=== PATIENT | female | born 1945 | race Caucasian/White ===

== ENCOUNTER 2017-10-04 17:11 | Emergency (ER) | payer MEDICARE, BC ==
[~2017-10-04] VITALS: Ht 165.1 cm; Wt 84.4 kg
[~2017-10-04 17:11] MED LIST: ALBU90I; ALBU90I INH; ALBU90OI INH; ALBU90OI6; ALBU90OI6 INH; ASPI81EC; ASPI81EC PO; Azithromycin500 MG PO; B-121000 MCG/1; BUME2 PO; BUSP15 PO; CYAN1000I IM; D3 + K2 Dots 11 EACH; DIGO.125 PO; DILT180; DILT180 PO; DILT240 PO; ESOM20; ESTR2; ESTR2 PO; Estradiol0.5 MG PO; FLUNOI IH; FURO40; FURO40 PO; GABA300T24; HYDACE5 PO; LISI5 PO; METO50ER; MIRT30 PO; Melatonin5 M1; NIFE10 PO; OMEP40CA12 PO; ONDA4ODT SL; POTCHL20ER PO; PROBIOTIC PO; PROM25 PO; Prinivil10 MG PO; QVAR7.3 G1; QVAR7.3 G1 IH; SENN187 PO; SPIR50; SPIR50 PO; SUCR1 PO; TRAZ100; TRAZ100 PO; Tambocor100 MG; WARF5 PO; WARF7.5 PO; Zofran Odt4 MG SL; [UNRECOGNIZED DRUG - OTHER]; [UNRECOGNIZED DRUG - OTHER] PO
[2017-10-04] MEDS ORDERED: BREO ELLIPTA 11 EACH INH (19:35)
[2017-10-04 20:12] LABS: International Normalized Ratio 1.16; Prothrombin Time Results 12.1 Sec (9.7-11.5)
[2017-10-04] MEDS ORDERED: Lovenox80 MG/0.8 SC (21:10)
== END 2017-10-04 21:24 | disposition home or self-care (01) ==
LOC: ER 17:11
PROVIDERS: Emergency Medicine
DX: I82.492 Acute embolism and thrombosis of other specified deep vein of left lower extremity (principal); R79.1 Abnormal coagulation profile; I48.91 Unspecified atrial fibrillation; I10 Essential (primary) hypertension; E11.9 Type 2 diabetes mellitus without complications; Z88.1 Allergy status to other antibiotic agents; Z88.8 Allergy status to other drugs, medicaments and biological substances; Z79.01 Long term (current) use of anticoagulants; Z90.710 Acquired absence of both cervix and uterus; Z90.49 Acquired absence of other specified parts of digestive tract
CPT/HCPCS: 36415; 85610; 85730; 93971-TC-LT; 96372; 99283; J1650

== ENCOUNTER 2017-11-28 06:21 | Emergency (ER) | payer MEDICARE, BC ==
[~2017-11-28] VITALS: Ht 165.1 cm; Wt 82.5 kg
[~2017-11-28 06:21] MED LIST changes: +BREO ELLIPTA 11 EACH INH; +Lovenox80 MG/0.8 SC
[2017-11-28 08:40] LABS: BASOPHILS ABSOLUTE AUTO 0.08 K/mm3 (0.00-0.23); BASOPHILS PERCENT AUTO 1 % (0-2); EOSINOPHILS ABSOLUTE AUTO 0.23 K/mm3 (0.00-0.68); EOSINOPHILS PERCENT AUTO 2 % (0-6); Hematocrit 40.3 % (33.0-51.0); Hemoglobin 13.4 g/dL (11.5-16.0); IMMATURE GRAN ABSOLUTE AUTO 0.05 K/mm3 (0.00-0.10); IMMATURE GRAN PERCENT AUTO 0 % (0-1); LYMPHOCYTES ABSOLUTE AUTO 2.13 K/mm3 (0.84-5.20); LYMPHOCYTES PERCENT AUTO 14 % (21-46); MONOCYTES ABSOLUTE AUTO 1.07 K/mm3 (0.16-1.47); MONOCYTES PERCENT AUTO 7 % (4-13); Mean Corpuscular HGB 28.8 pg (26.0-34.0); Mean Corpuscular HGB Conc 33.3 g/dL (31.5-36.5); Mean Corpuscular Volume 87 fL (80-100); Mean Platelet Volume 9.3 fL (9.1-12.4); NEUTROPHILS ABSOLUTE AUTO 11.78 K/mm3 (1.96-9.15); NEUTROPHILS PERCENT AUTO 77 % (41-73); Platelet Count 282 K/mm3 (150-400); RDW Coefficient Variation 13.7 % (11.7-14.2); RDW Standard Deviation 43.2 fL (35.1-46.3); Red Blood Cell Count 4.65 M/mm3 (3.80-5.20); White Blood Cell Count 15.34 K/mm3 (4.00-11.30)
[2017-11-28 08:47] LABS: Source, Urine Clean Catch
[2017-11-28 08:50] LABS: Appearance, Urine Bloody (Clear); Bilirubin, Urine Neg (Neg); Blood, Urine 5+ (Neg); Color, Urine Red (P-Yellow); Glucose Qualitative, Urine Neg (Neg); Ketones, Urine 1+ (Neg); Leukocyte Esterase, Urine 2+ (Neg); Nitrite, Urine Neg (Neg); Protein, Urine 3+ (Neg); Urobilinogen, Urine NORM (Normal); pH, Urine 6.5 (5.0-8.0)
[2017-11-28 09:00] LABS: Bacteria Mod /hpf; Red Blood Cells, Urine TNTC /hpf (0-2); Squamous Epithelial Cells Few /hpf (Few); White Blood Cells, Urine TNTC /hpf (0-5)
[2017-11-28 09:00] LABS: Albumin, Blood 3.6 g/dL (3.4-5.0); Albumin/Globulin Ratio 0.8 (0.8-1.8); Bilirubin, Total 0.3 mg/dL (0.1-1.0); Bun/Creatinine Ratio 12.5 (12.0-20.0); Calcium, Blood 8.9 mg/dL (8.5-10.1); Creatinine, Blood 1.04 mg/dL (0.40-1.00); Globulin, Blood 4.3 g/dL (2.2-4.0); Potassium, Blood 4.4 mmol/L (3.5-5.5); Total Protein, Blood 7.9 g/dL (6.4-8.2)
[2017-11-28 09:01] LABS: Transitional Epithelial Cells Few /hpf (0-Rare)
[2017-11-28 09:16] LABS: International Normalized Ratio 2.96; Prothrombin Time Results 31.8 Sec (9.7-11.5)
[2017-11-28] MEDS ORDERED: CEPH500 PO (10:29)
[2017-11-28] MEDS ORDERED: Norco 5-325 Ta1 EACH PO (11:02)
== END 2017-11-28 11:14 | disposition home or self-care (01) ==
LOC: ER 06:21
PROVIDERS: Emergency Medicine
DX: N30.91 Cystitis, unspecified with hematuria (principal); I10 Essential (primary) hypertension; I48.91 Unspecified atrial fibrillation; E11.9 Type 2 diabetes mellitus without complications; G47.30 Sleep apnea, unspecified; Z90.710 Acquired absence of both cervix and uterus; Z88.1 Allergy status to other antibiotic agents; Z88.8 Allergy status to other drugs, medicaments and biological substances; Z79.01 Long term (current) use of anticoagulants; Z79.899 Other long term (current) drug therapy
CPT/HCPCS: 36415; 74177; 80053; 81001; 85025; 85610; 85730; 87077; 87086; 87186; 96365; 96375; 99284; J0696; J2405; J3010; Q9967

== ENCOUNTER 2018-01-01 13:33 | Day surgery (SDC) | payer MEDICARE, BC ==
[~2018-01-01] VITALS: Ht 165.1 cm; Wt 81.9 kg
[~2018-01-01 13:33] MED LIST changes: +CEPH500 PO; +Norco 5-325 Ta1 EACH PO
== END 2018-01-01 16:54 | disposition home or self-care (01) ==
LOC: ORSCSDS 13:33
PROVIDERS: Internal Medicine Gastroenterology
PROC: 0DBL8ZX Excision of Transverse Colon, Via Natural or Artificial Opening Endoscopic, Diagnostic (ICD-10-PCS; principal; 2018-01-01 15:15)
PROC: 0DBM8ZX Excision of Descending Colon, Via Natural or Artificial Opening Endoscopic, Diagnostic (ICD-10-PCS; principal; 2018-01-01 15:15)
DX: Z86.010 Personal history of colon polyps (principal); D12.3 Benign neoplasm of transverse colon; D12.4 Benign neoplasm of descending colon; K57.30 Diverticulosis of large intestine without perforation or abscess without bleeding; K59.00 Constipation, unspecified; Z83.71 Family history of colonic polyps; G47.33 Obstructive sleep apnea (adult) (pediatric); I10 Essential (primary) hypertension; E11.9 Type 2 diabetes mellitus without complications; Z86.718 Personal history of other venous thrombosis and embolism; Z95.0 Presence of cardiac pacemaker; Z79.01 Long term (current) use of anticoagulants; Z79.899 Other long term (current) drug therapy
CPT/HCPCS: 82947; 88305; J7120

== ENCOUNTER 2018-02-04 23:43 | Emergency (ER) | payer MEDICARE, BC ==
[~2018-02-04] VITALS: Ht 165.1 cm; Wt 82.5 kg
[2018-02-05 00:04] LABS: BASOPHILS ABSOLUTE AUTO 0.06 K/mm3 (0.00-0.23); BASOPHILS PERCENT AUTO 1 % (0-2); EOSINOPHILS ABSOLUTE AUTO 0.21 K/mm3 (0.00-0.68); EOSINOPHILS PERCENT AUTO 2 % (0-6); Hematocrit 35.6 % (33.0-51.0); IMMATURE GRAN ABSOLUTE AUTO 0.04 K/mm3 (0.00-0.10); IMMATURE GRAN PERCENT AUTO 0 % (0-1); LYMPHOCYTES ABSOLUTE AUTO 3.38 K/mm3 (0.84-5.20); LYMPHOCYTES PERCENT AUTO 26 % (21-46); MONOCYTES PERCENT AUTO 8 % (4-13); Mean Corpuscular HGB 29.2 pg (26.0-34.0); Mean Corpuscular HGB Conc 33.7 g/dL (31.5-36.5); Mean Corpuscular Volume 87 fL (80-100); Mean Platelet Volume 9.3 fL (9.1-12.4); NEUTROPHILS ABSOLUTE AUTO 8.29 K/mm3 (1.96-9.15); NEUTROPHILS PERCENT AUTO 63 % (41-73); Platelet Count 266 K/mm3 (150-400); RDW Coefficient Variation 13.5 % (11.7-14.2); Red Blood Cell Count 4.11 M/mm3 (3.80-5.20); White Blood Cell Count 13.08 K/mm3 (4.00-11.30)
[2018-02-05 00:19] LABS: Troponin I <0.015 ng/mL (0.000-0.040)
[2018-02-05 00:20] LABS: Alanine Aminotransfer (ALT/SGP 25 U/L (12-78); Albumin, Blood 3.3 g/dL (3.4-5.0); Albumin/Globulin Ratio 0.9 (0.8-1.8); Alk Phos 86 U/L (50-136); Anion Gap 6 mmol/L (6-16); Aspartate Aminotrans (AST/SGOT 28 U/L (12-37); Bilirubin, Total 0.2 mg/dL (0.1-1.0); Blood Urea Nitrogen 21 mg/dL (8-24); Bun/Creatinine Ratio 22.2 (12.0-20.0); CO2, Blood 28 mmol/L (21-32); Calcium, Blood 8.4 mg/dL (8.5-10.1); Chloride, Blood 104 mmol/L (98-108); Creatinine, Blood 0.95 mg/dL (0.40-1.00); Globulin, Blood 3.7 g/dL (2.2-4.0); Glomerular Filtration Rate >60 (60-); Glucose, Blood 123 mg/dL (70-99); Potassium, Blood 4.1 mmol/L (3.5-5.5); Sodium, Blood 138 mmol/L (136-145)
[2018-02-05] MEDS ORDERED: BUME2 PO (01:17)
[2018-02-05] MEDS ORDERED: BUSP10 PO (01:17)
[2018-02-05] MEDS ORDERED: Prinivil10 MG PO (01:19)
[2018-02-05] MEDS ORDERED: TRAZ150T57 PO (01:19)
[2018-02-05] MEDS ORDERED: Omeprazole20 M1 PO (01:20)
[2018-02-05] MEDS ORDERED: ELIQUIS5 MG PO (01:32)
[2018-02-05] MEDS ORDERED: CYAN100T2 (01:33)
== END 2018-02-05 03:25 | disposition home or self-care (01) ==
LOC: ER 23:43
PROVIDERS: Emergency Medicine
DX: R07.9 Chest pain, unspecified (principal); Z88.8 Allergy status to other drugs, medicaments and biological substances; Z88.1 Allergy status to other antibiotic agents; Z79.899 Other long term (current) drug therapy; I48.91 Unspecified atrial fibrillation; I10 Essential (primary) hypertension; E11.9 Type 2 diabetes mellitus without complications
CPT/HCPCS: 71046; 80053; 83690; 84484; 85025; 93005; 93010; 96361; 96374; 99284; J2405; J3010; J7030

== ENCOUNTER 2019-11-05 12:26 | Emergency (ER) | payer MEDICARE, BC ==
[~2019-11-05] VITALS: Ht 165.1 cm; Wt 87.1 kg
[~2019-11-05 12:26] MED LIST changes: +BUSP10 PO; +CYAN100T2; +ELIQUIS5 MG PO; +Omeprazole20 M1 PO; +TRAZ150T57 PO
== END 2019-11-05 16:48 | disposition home or self-care (01) ==
LOC: ER 12:26
DX: S80.02XA Contusion of left knee, initial encounter (principal); S00.81XA Abrasion of other part of head, initial encounter; S60.311A Abrasion of right thumb, initial encounter; W01.0XXA Fall on same level from slipping, tripping and stumbling without subsequent striking against object, initial encounter
CPT/HCPCS: 70450; 73130; 73564; 90471; 90714; 99284-25

== ENCOUNTER 2020-04-11 08:42 | Emergency (ER) | payer MEDICARE, BC ==
[~2020-04-11] VITALS: Ht 165.1 cm; Wt 86.2 kg
[~2020-04-11 08:42] MED LIST changes: +ALPR.5 PO
[2020-04-11] MEDS ORDERED: METFORMIN HCL500 M3 PO (08:57)
[2020-04-11] MEDS ORDERED: MIRTAZAPINE (08:58)
[2020-04-11] MEDS ORDERED: ATORVASTATIN TAB 10M (08:58)
[2020-04-11] MEDS ORDERED: CODACE30 PO (09:26)
== END 2020-04-11 10:27 | disposition home or self-care (01) ==
LOC: ER 08:42
DX: S09.90XA Unspecified injury of head, initial encounter (principal); S32.2XXA Fracture of coccyx, initial encounter for closed fracture; S39.012A Strain of muscle, fascia and tendon of lower back, initial encounter; S70.02XA Contusion of left hip, initial encounter; Z88.8 Allergy status to other drugs, medicaments and biological substances; Z88.1 Allergy status to other antibiotic agents; Z79.899 Other long term (current) drug therapy; I48.91 Unspecified atrial fibrillation; I10 Essential (primary) hypertension; E11.9 Type 2 diabetes mellitus without complications; G47.30 Sleep apnea, unspecified; J45.909 Unspecified asthma, uncomplicated; W07.XXXA Fall from chair, initial encounter
CPT/HCPCS: 70450; 72100; 72170; 96374; 96375; 99284-25; J2405; J3010

== ENCOUNTER 2020-08-17 21:47 | Observation (INO) | payer MEDICARE, BC ==
[~2020-08-17] VITALS: Ht 165.1 cm; Wt 88.0 kg
[~2020-08-17 21:47] MED LIST changes: +ATORVASTATIN TAB 10M PO; +CODACE30 PO; -CYAN100T2; +CYAN500 PO; +METFORMIN HCL500 M3 PO; -METO50ER; +METO50ER PO; +MIRTAZAPINE PO; -Melatonin5 M1; +Melatonin5 M1 PO
[2020-08-17 22:22] LABS: BASOPHILS ABSOLUTE AUTO 0.08 K/mm3 (0.00-0.23); BASOPHILS PERCENT AUTO 1 % (0-2); EOSINOPHILS ABSOLUTE AUTO 0.27 K/mm3 (0.00-0.68); EOSINOPHILS PERCENT AUTO 2 % (0-6); Hematocrit 38.6 % (33.0-51.0); Hemoglobin 12.4 g/dL (11.5-16.0); IMMATURE GRAN ABSOLUTE AUTO 0.03 K/mm3 (0.00-0.10); IMMATURE GRAN PERCENT AUTO 0 % (0-1); LYMPHOCYTES ABSOLUTE AUTO 3.08 K/mm3 (0.84-5.20); LYMPHOCYTES PERCENT AUTO 27 % (21-46); MONOCYTES ABSOLUTE AUTO 0.99 K/mm3 (0.16-1.47); MONOCYTES PERCENT AUTO 9 % (4-13); Mean Corpuscular HGB 28.2 pg (26.0-34.0); Mean Corpuscular HGB Conc 32.1 g/dL (31.5-36.5); Mean Corpuscular Volume 88 fL (80-100); Mean Platelet Volume 9.3 fL (9.1-12.4); NEUTROPHILS ABSOLUTE AUTO 6.84 K/mm3 (1.96-9.15); NEUTROPHILS PERCENT AUTO 61 % (41-73); Platelet Count 250 K/mm3 (150-400); RDW Standard Deviation 45.4 fL (35.1-46.3); White Blood Cell Count 11.29 K/mm3 (4.00-11.30)
[2020-08-17] MEDS ORDERED: ESCI10 PO (22:28)
[2020-08-17] MEDS ORDERED: ELIQUIS5 M3 PO (22:29)
[2020-08-17 22:36] LABS: Alanine Aminotransfer (ALT/SGP 36 U/L (12-78); Albumin, Blood 3.6 g/dL (3.4-5.0); Albumin/Globulin Ratio 0.9 (0.8-1.8); Alk Phos 102 U/L (50-136); Anion Gap 8 mmol/L (6-16); Aspartate Aminotrans (AST/SGOT 34 U/L (12-37); Bilirubin, Total 0.2 mg/dL (0.1-1.0); Blood Urea Nitrogen 18 mg/dL (8-24); Bun/Creatinine Ratio 20.3 (12.0-20.0); CO2, Blood 25 mmol/L (21-32); Calcium, Blood 9.4 mg/dL (8.5-10.1); Chloride, Blood 106 mmol/L (98-108); Creatinine, Blood 0.89 mg/dL (0.40-1.00); Globulin, Blood 3.8 g/dL (2.2-4.0); Glomerular Filtration Rate >60 (60-); Glucose, Blood 143 mg/dL (70-99); Potassium, Blood 3.7 mmol/L (3.5-5.5); Sodium, Blood 139 mmol/L (136-145); Total Protein, Blood 7.4 g/dL (6.4-8.2); Troponin I <0.015 ng/mL (0.000-0.040)
[2020-08-18] MEDS ORDERED: OMEP20ER PO (01:43)
[2020-08-18 05:36] LABS: BASOPHILS ABSOLUTE AUTO 0.07 K/mm3 (0.00-0.23); BASOPHILS PERCENT AUTO 1 % (0-2); EOSINOPHILS ABSOLUTE AUTO 0.32 K/mm3 (0.00-0.68); EOSINOPHILS PERCENT AUTO 4 % (0-6); Hematocrit 37.5 % (33.0-51.0); Hemoglobin 12.4 g/dL (11.5-16.0); IMMATURE GRAN ABSOLUTE AUTO 0.09 K/mm3 (0.00-0.10); IMMATURE GRAN PERCENT AUTO 1 % (0-1); LYMPHOCYTES PERCENT AUTO 36 % (21-46); MONOCYTES ABSOLUTE AUTO 0.87 K/mm3 (0.16-1.47); MONOCYTES PERCENT AUTO 10 % (4-13); Mean Corpuscular HGB 28.7 pg (26.0-34.0); Mean Corpuscular HGB Conc 33.1 g/dL (31.5-36.5); Mean Corpuscular Volume 87 fL (80-100); Mean Platelet Volume 9.7 fL (9.1-12.4); NEUTROPHILS PERCENT AUTO 49 % (41-73); Platelet Count 219 K/mm3 (150-400); RDW Coefficient Variation 14.1 % (11.7-14.2); RDW Standard Deviation 44.3 fL (35.1-46.3); Red Blood Cell Count 4.32 M/mm3 (3.80-5.20); White Blood Cell Count 9.15 K/mm3 (4.00-11.30)
[2020-08-18 06:00] LABS: Alanine Aminotransfer (ALT/SGP 34 U/L (12-78); Albumin, Blood 3.1 g/dL (3.4-5.0); Albumin/Globulin Ratio 0.8 (0.8-1.8); Alk Phos 93 U/L (50-136); Anion Gap 5 mmol/L (6-16); Aspartate Aminotrans (AST/SGOT 35 U/L (12-37); Bilirubin, Total 0.2 mg/dL (0.1-1.0); Blood Urea Nitrogen 15 mg/dL (8-24); Bun/Creatinine Ratio 18.9 (12.0-20.0); CO2, Blood 24 mmol/L (21-32); CPK Creatine Kinase 69 U/L (26-193); Calcium, Blood 8.6 mg/dL (8.5-10.1); Chloride, Blood 112 mmol/L (98-108); Creatinine, Blood 0.79 mg/dL (0.40-1.00); Globulin, Blood 3.8 g/dL (2.2-4.0); Glomerular Filtration Rate >60 (60-); Glucose, Blood 127 mg/dL (70-99); Sodium, Blood 141 mmol/L (136-145); Total Protein, Blood 6.9 g/dL (6.4-8.2); Troponin I <0.015 ng/mL (0.000-0.040)
--- NOTE | 2020-08-18 06:32 | NUR ---
SUMMARY PT ARRIVED TO FLOOR IN NO DISTRESS. PT DENIES CX PAIN OR SOB. PT HAS SLEPT MOST OF SHIFT. PT CURRENTLY SLEEPING IN NO DISTRESS. CALL LIGHT IN REACH.
[2020-08-18 14:21] LABS: CPK Creatine Kinase 59 U/L (26-193); Troponin I <0.015 ng/mL (0.000-0.040)
--- NOTE | 2020-08-18 18:07 | NUR ---
SHIFT SUMMARY PT IS A&O, VERY PLEASANT AND CO-OP. UP WITH [facility] IN AND TO [facility]. PT ADMITTED FOR C/O CP, BUT HAD NO CP ALL DAY. DR LYNN IN TO SEE PT EARLIER TODAY. PT TO HAVE ONE DAY PROTOCOL STRESS TEST TOMORROW. SCHEDULE AND PROCESS EXPLAINED TO PT; VERBALIZED UNDERSTANDING. 1720 PT CALLED TO REPORT SEVERE L ARM PAIN RADIATING TO JAW; 1210 PAIN. VS TAKEN, SEE CHART. CHRG RN NOTIFIED AND NITRO OBTAINED. NITRO X1 GIVEN WITH SOME RELIEF, WHILE EKG LEADS BEING PLACED. 2ND NITRO GIVEN WITH MORE RELIEF. DR LYNN NOTIFIED OF CP, NITRO GIVEN AND EKG DONE. DR LYNN TO PLACE NEW ORDERS. PT THEN C/O SEVERE L ARM PAIN RETURNED. 3RD NITRO GIVEN WITH RELIEF. DR LYNN NOTIFIED A SECOND TIME. NITRO TO BE D/C'D WITH FENTANYL TO BE USED FOR PAIN RELIEF PT TO HAVE STRESS TEST TOMORROW AND NITRO TO BE HELD. PT IS PRESENTLY RESTING QUIETLY WITH NO C/O. CALL LT IN REACH. TELE MX NOTIFIED WELL.
--- NOTE | 2020-08-19 03:14 | NUR ---
SUMMARY NO ISSUES NOTED PT HAS SLEPT T/O SHIFT. PT DENIES CX PAIN. PT CURREENTLY SLEEPING IN NO DISTRESS. CALL LIGHT IN REACH.
--- NOTE | 2020-08-19 17:00 | NUR ---
SHIFT SUMMARY PT AWAKE AT START OF SHIFT, WAITING FOR 1ST PART OF STRESS TEST. PT NPO SINCE LAST NIGHT. DID NOT WANT A SNACK THIS AM. PT CALLED FOR ASSIST TO [facility]. PT ALOT MORE STEADY NOW THAN WHEN ADMITTED. PT ABLE TO AMBULATE TO [facility] AND BED W/O DIFFICULTY. NUC MED HERE TO PROCEED WITH STRESS TEST. PT COMPLETED TESTING THIS AFTERNOON. DR LYNN TO RM NOW TO DISCUSS RESULTS OF TESTS. INSTRUCTIONS GIVEN TO PT REGARDING FUTURE POSSIBLE EPISODES. PT CLEAR TO D/C PER DR LYNN. PT TO F/U WITH PCP AND CARDIOLOGY DIRECTED. D/C INSTRUCTIONS TO FOLLOW.
--- NOTE | 2020-08-19 18:34 | NUR ---
TELE MX AND IV SITE REMOVED. PT ABLE TO GET DRESSED AND CALLED . PT UP TO EOB TO EAT DINNER WHILE WAITING ON . PT TAKE DOWN TO ENTRANCE VIA W/C BY WASH HOUSE WORKER.
== END 2020-08-19 18:23 | disposition home or self-care (01) ==
LOC: ER 21:47 → MEDS 21:48 → ENPENDDIS 08-19 17:21 → MEDS 08-19 18:23
PROVIDERS: Emergency Medicine; ADMIT Internal Medicine
DX: R07.9 Chest pain, unspecified (principal); I10 Essential (primary) hypertension; I48.0 Paroxysmal atrial fibrillation; I49.5 Sick sinus syndrome; E11.40 Type 2 diabetes mellitus with diabetic neuropathy, unspecified; J45.909 Unspecified asthma, uncomplicated; K58.9 Irritable bowel syndrome, unspecified; F32.9 Major depressive disorder, single episode, unspecified; G47.33 Obstructive sleep apnea (adult) (pediatric); E66.9 Obesity, unspecified; Z68.32 Body mass index [BMI] 32.0-32.9, adult; Z88.8 Allergy status to other drugs, medicaments and biological substances; Z79.51 Long term (current) use of inhaled steroids; Z79.01 Long term (current) use of anticoagulants; Z79.84 Long term (current) use of oral hypoglycemic drugs; Z79.899 Other long term (current) drug therapy; Z95.0 Presence of cardiac pacemaker; Z23 Encounter for immunization
CPT/HCPCS: 36415; 71046; 78452; 80053; 82550; 84484; 85025; 93005; 93010; 93017; 94640; 94660; 94762; 99285-25; A9500; J0280; J2785

== ENCOUNTER 2020-09-07 06:06 | Day surgery (SDC) | payer MEDICARE, BC ==
[~2020-09-07] VITALS: Ht 165.1 cm; Wt 89.0 kg
[~2020-09-07 06:06] MED LIST changes: +ELIQUIS5 M3 PO; +ESCI10 PO; +OMEP20ER PO; +POTA10T PO
--- NOTE | 2020-09-07 07:42 | NUR ---
PT RETURNED TO RECOVERY ROOM IN RECLINER WITH RIGHT RADIAL TR BAND IN PLACE WITH RIGHT WRIST BOARD. RIGHT RADIAL TR BAND SITE SOFT NON-TENDER WITH NO HEMATOMA, NO PULSATILE BLEEDING. PT DENIES CHEST PAIN. CALL LIGHT IN REACH.
--- NOTE | 2020-09-07 09:41 | NUR ---
11 CC OF AIR REMOVED FROM NOW DEFLATED RIGHT TR BAND; NO HEMATOMA, NO PULSATILE BLEEDING. DISCHARGE INSTRUCTIONS REVIEWED ALL QUESTIONS ANSWERED.
--- NOTE | 2020-09-07 10:19 | NUR ---
PT AMBULATED TO BR TO VOID. NO CHANGES TO DEFLATED RIGHT TR BAND SITE.
--- NOTE | 2020-09-07 10:45 | NUR ---
NO CHANGES TO RIGHT RADIAL SITE; TR BAND REMOVED AND POLYMEM PLACED OVER RIGHT RADIAL SITE WITH WRIST BOARD IN PLACE. 20 G IV DISCONTINUED FROM LEFT AC WITH INTACT CANNULA. PT ESCORTED OUT VIA WHEELCHAIR ESCORT.
== END 2020-09-07 10:45 | disposition home or self-care (01) ==
LOC: MHTC 06:06
PROC: B2111ZZ Fluoroscopy of Multiple Coronary Arteries using Low Osmolar Contrast (ICD-10-PCS; principal; 2020-09-07)
PROC: 4A023N7 Measurement of Cardiac Sampling and Pressure, Left Heart, Percutaneous Approach (ICD-10-PCS; principal; 2020-09-07)
DX: I25.118 Atherosclerotic heart disease of native coronary artery with other forms of angina pectoris (principal); I48.0 Paroxysmal atrial fibrillation; I34.0 Nonrheumatic mitral (valve) insufficiency; I27.20 Pulmonary hypertension, unspecified; I10 Essential (primary) hypertension; E11.9 Type 2 diabetes mellitus without complications; J45.909 Unspecified asthma, uncomplicated; K21.9 Gastro-esophageal reflux disease without esophagitis; F41.9 Anxiety disorder, unspecified; F32.9 Major depressive disorder, single episode, unspecified; E66.9 Obesity, unspecified; Z68.32 Body mass index [BMI] 32.0-32.9, adult; Z95.0 Presence of cardiac pacemaker; Z79.84 Long term (current) use of oral hypoglycemic drugs; Z79.51 Long term (current) use of inhaled steroids; Z79.01 Long term (current) use of anticoagulants; Z79.899 Other long term (current) drug therapy; Z88.1 Allergy status to other antibiotic agents; Z88.6 Allergy status to analgesic agent; Z88.8 Allergy status to other drugs, medicaments and biological substances; Z20.828 Contact with and (suspected) exposure to other viral communicable diseases
CPT/HCPCS: 76937; 93458; 99152; C1769; C1894; J1644; J2250; J3010; J7030; J7050; Q9967

== ENCOUNTER 2020-12-22 17:53 | Emergency (ER) | payer MEDICARE, BC ==
[~2020-12-22] VITALS: Ht 165.1 cm; Wt 86.2 kg
[2020-12-22] MEDS ORDERED: BENADRYL25 MG PO (20:28)
== END 2020-12-22 20:40 | disposition home or self-care (01) ==
LOC: ER 17:53
DX: L29.9 Pruritus, unspecified (principal); R07.9 Chest pain, unspecified; I48.0 Paroxysmal atrial fibrillation; I10 Essential (primary) hypertension; E11.40 Type 2 diabetes mellitus with diabetic neuropathy, unspecified; Z79.899 Other long term (current) drug therapy; Z88.1 Allergy status to other antibiotic agents; Z88.6 Allergy status to analgesic agent; Z79.01 Long term (current) use of anticoagulants; Z88.8 Allergy status to other drugs, medicaments and biological substances
CPT/HCPCS: 71046; 96374; 99283-25; J1200

== ENCOUNTER → 2021-06-07 | Outpatient (CLI) | payer MEDICARE, BC ==
[~2021-06-07] MED LIST changes: +BENADRYL25 MG PO
== END | disposition home or self-care (01) ==
LOC: LAB SHORT 11:12
DX: L98.499 Non-pressure chronic ulcer of skin of other sites with unspecified severity (principal)
CPT/HCPCS: 87070; 87205; 88305

== ENCOUNTER 2021-09-27 23:21 | Emergency (ER) | payer MEDICARE, BC ==
[~2021-09-27] VITALS: Ht 165.1 cm; Wt 86.2 kg
== END 2021-09-28 02:00 | disposition home or self-care (01) ==
LOC: ER 23:21
DX: G43.909 Migraine, unspecified, not intractable, without status migrainosus (principal); J45.909 Unspecified asthma, uncomplicated; E11.40 Type 2 diabetes mellitus with diabetic neuropathy, unspecified; I10 Essential (primary) hypertension; G47.33 Obstructive sleep apnea (adult) (pediatric); Z88.1 Allergy status to other antibiotic agents; Z88.8 Allergy status to other drugs, medicaments and biological substances; Z79.899 Other long term (current) drug therapy
CPT/HCPCS: 36415; 70450; 96374; 96375; 99284-25; J0780; J1885

== ENCOUNTER 2022-07-10 20:10 | Emergency (ER) | payer OTHER, MEDICARE ==
[~2022-07-10] VITALS: Ht 165.1 cm; Wt 83.9 kg
[~2022-07-10 20:10] MED LIST changes: +ATOR10 PO; -ATORVASTATIN TAB 10M PO; +DOCU100 PO; +Desyrel150 MG PO; +LISI20 PO; +METO25ER PO; -METO50ER PO; +METO5A PO; +MIRALAX17 GM PO; -MIRTAZAPINE PO; +REMERON PO; +SENNA LAXATIVE8.6 MG PO; -TRAZ100 PO; -Tambocor100 MG; +Tambocor100 MG PO
== END 2022-07-10 23:05 | disposition home or self-care (01) ==
LOC: ER 20:10
DX: S00.83XA Contusion of other part of head, initial encounter (principal); S50.01XA Contusion of right elbow, initial encounter; S80.01XA Contusion of right knee, initial encounter; W01.0XXA Fall on same level from slipping, tripping and stumbling without subsequent striking against object, initial encounter; J45.909 Unspecified asthma, uncomplicated; I10 Essential (primary) hypertension; E11.40 Type 2 diabetes mellitus with diabetic neuropathy, unspecified; I48.0 Paroxysmal atrial fibrillation; Z88.1 Allergy status to other antibiotic agents; Z88.5 Allergy status to narcotic agent; Z79.899 Other long term (current) drug therapy; Z79.01 Long term (current) use of anticoagulants
CPT/HCPCS: 70450; 72125; 73080; 73562-RT; A9270; J2405; J3010

== ENCOUNTER 2022-09-07 05:16 | Emergency (ER) | payer MEDICARE, OTHER ==
[~2022-09-07] VITALS: Ht 165.1 cm; Wt 61.2 kg
[2022-09-07] MEDS ORDERED: ATOR10 PO (07:18)
[2022-09-07] MEDS ORDERED: OMEP20ER PO (07:18)
[2022-09-07] MEDS ORDERED: ELIQUIS5 M3 PO (07:18)
[2022-09-07] MEDS ORDERED: MIRT15ST PO (07:18)
[2022-09-07] MEDS ORDERED: TRAZ150T57 PO (07:18)
[2022-09-07] MEDS ORDERED: ESCI10 PO (07:18)
[2022-09-07] MEDS ORDERED: BUSPIRONE HCL10 M6 PO (07:19)
[2022-09-07] MEDS ORDERED: MORP15ER PO (08:04)
[2022-09-07] MEDS ORDERED: ULTRA-LIGHT RO1 EACH MC (08:40)
== END 2022-09-07 09:03 | disposition home or self-care (01) ==
LOC: ER 05:16
DX: M25.562 Pain in left knee (principal); M25.762 Osteophyte, left knee; M25.462 Effusion, left knee; E11.9 Type 2 diabetes mellitus without complications; J45.909 Unspecified asthma, uncomplicated; I10 Essential (primary) hypertension; Z88.8 Allergy status to other drugs, medicaments and biological substances; Z79.899 Other long term (current) drug therapy; Z79.01 Long term (current) use of anticoagulants; Z79.84 Long term (current) use of oral hypoglycemic drugs; Z95.0 Presence of cardiac pacemaker
CPT/HCPCS: 73562-LT; 73700; A9270

== ENCOUNTER → 2022-12-12 | Outpatient (CLI) | payer MEDICARE, OTHER ==
[~2022-12-12] MED LIST changes: +BUSPIRONE HCL10 M6 PO; +MIRT15ST PO; +MORP15ER PO; +ULTRA-LIGHT RO1 EACH MC
== END | disposition home or self-care (01) ==
LOC: LAB SHORT 09:17 → LAB 09:17
DX: N39.0 Urinary tract infection, site not specified (principal)
CPT/HCPCS: 87077; 87086; 87186

== ENCOUNTER 2023-01-07 12:06 | Day surgery (SDC) | payer MEDICARE, OTHER ==
[~2023-01-07] VITALS: Ht 165.1 cm; Wt 81.2 kg
[2023-01-07] MEDS ORDERED: ARTIFICIAL TEAR15 M6 (13:09)
[2023-01-07] MEDS ORDERED: ALPR.5 (13:09)
[2023-01-07] MEDS ORDERED: VITAMIN D310 MC4 (13:10)
[2023-01-07] MEDS ORDERED: ARNUITY ELLIP200 MCG (13:10)
[2023-01-07] MEDS ORDERED: MIRT30ST (13:11)
[2023-01-07] MEDS ORDERED: METF500 (13:11)
[2023-01-07] MEDS ORDERED: METO5A (13:11)
[2023-01-07] MEDS ORDERED: PROC5 (13:12)
[2023-01-07 15:36] VITALS: BP 174/80
--- NOTE | 2023-01-07 15:41 | NUR ---
01/07/23 1541 BECKY HAINES PT BACK TO ROOM VIA GURNEY. TO ROOM. PT SLEEPY AND DIFFICULT TO AROUSE. VSS ON ROOM AIR. DR. MASON IN TO SEE PATIENT. NO NEW ORDERS, CONT TO MONITOR UNTIL MORE AWAKE. ENGAGED IN DC INSTRUCTIONS WITH AND DR. MASON TALKED TO .
== END 2023-01-07 16:12 | disposition home or self-care (01) ==
LOC: ORSCSDS 12:06
PROVIDERS: Internal Medicine Gastroenterology
PROC: 0DBN8ZX Excision of Sigmoid Colon, Via Natural or Artificial Opening Endoscopic, Diagnostic (ICD-10-PCS; principal; 2023-01-07 13:45)
PROC: 0DBM8ZX Excision of Descending Colon, Via Natural or Artificial Opening Endoscopic, Diagnostic (ICD-10-PCS; principal; 2023-01-07 13:45)
DX: Z12.11 Encounter for screening for malignant neoplasm of colon (principal); Z86.010 Personal history of colon polyps; K63.5 Polyp of colon; K57.30 Diverticulosis of large intestine without perforation or abscess without bleeding; G47.33 Obstructive sleep apnea (adult) (pediatric); I48.91 Unspecified atrial fibrillation; Z79.01 Long term (current) use of anticoagulants; Z95.0 Presence of cardiac pacemaker; J45.909 Unspecified asthma, uncomplicated; E11.9 Type 2 diabetes mellitus without complications; Z79.84 Long term (current) use of oral hypoglycemic drugs
CPT/HCPCS: 82947; 88305; A9270; J0330; J0461; J2001; J2405; J2704; J7120; Q9968

== ENCOUNTER 2023-01-15 16:21 | Emergency (ER) | payer MEDICARE, OTHER ==
[~2023-01-15] VITALS: Ht 165.1 cm; Wt 79.8 kg
[~2023-01-15 16:21] MED LIST changes: +ALPR.5; +ARNUITY ELLIP200 MCG; +ARTIFICIAL TEAR15 M6; +METF500; +METO5A; +MIRT30ST; +PROC5; +VITAMIN D310 MC4
[2023-01-15 16:47] LABS: BASOPHILS ABSOLUTE AUTO 0.03 K/mm3 (0.00-0.23); BASOPHILS PERCENT AUTO 0 % (0-2); EOSINOPHILS ABSOLUTE AUTO 0.24 K/mm3 (0.00-0.68); EOSINOPHILS PERCENT AUTO 2 % (0-6); Hematocrit 42.3 % (33.0-51.0); Hemoglobin 14.8 g/dL (11.5-16.0); IMMATURE GRAN ABSOLUTE AUTO 0.09 K/mm3 (0.00-0.10); IMMATURE GRAN PERCENT AUTO 1 % (0-1); LYMPHOCYTES ABSOLUTE AUTO 3.14 K/mm3 (0.84-5.20); LYMPHOCYTES PERCENT AUTO 20 % (21-46); MONOCYTES ABSOLUTE AUTO 1.29 K/mm3 (0.16-1.47); MONOCYTES PERCENT AUTO 8 % (4-13); Mean Corpuscular Volume 86 fL (80-100); Mean Platelet Volume 9.2 fL (9.1-12.4); NEUTROPHILS PERCENT AUTO 70 % (41-73); Platelet Count 273 K/mm3 (150-400); RDW Coefficient Variation 13.4 % (11.7-14.2); RDW Standard Deviation 41.5 fL (35.1-46.3); Red Blood Cell Count 4.94 M/mm3 (3.80-5.20); White Blood Cell Count 15.79 K/mm3 (4.00-11.30)
[2023-01-15 17:11] LABS: Albumin, Blood 3.5 g/dL (3.4-5.0); Albumin/Globulin Ratio 0.9 (0.8-1.8); Bilirubin, Total 0.2 mg/dL (0.1-1.0); Bun/Creatinine Ratio 27.8 (12.0-20.0); Calcium, Blood 9.2 mg/dL (8.5-10.1); Creatinine, Blood 0.79 mg/dL (0.40-1.00); Potassium, Blood 3.3 mmol/L (3.5-5.5); Total Protein, Blood 7.5 g/dL (6.4-8.2)
[2023-01-15 20:45] VITALS: BP 121/71
== END 2023-01-15 20:56 | disposition home or self-care (01) ==
LOC: ER 16:21
PROVIDERS: Emergency Medicine
DX: I48.91 Unspecified atrial fibrillation (principal); F41.9 Anxiety disorder, unspecified; R00.2 Palpitations; E87.6 Hypokalemia; Z88.8 Allergy status to other drugs, medicaments and biological substances; Z88.1 Allergy status to other antibiotic agents; Z79.899 Other long term (current) drug therapy; Z79.84 Long term (current) use of oral hypoglycemic drugs; J45.909 Unspecified asthma, uncomplicated; E11.40 Type 2 diabetes mellitus with diabetic neuropathy, unspecified; I48.0 Paroxysmal atrial fibrillation; G47.33 Obstructive sleep apnea (adult) (pediatric); I10 Essential (primary) hypertension
CPT/HCPCS: 71045; 80053; 84484; 85025; 93005; 93010; A9270; J2060

== ENCOUNTER → 2023-03-02 | Outpatient (CLI) | payer MEDICARE, OTHER | END | disposition home or self-care (01) | LOC: LAB SHORT 11:30 → LAB 11:30 | DX: N39.0 Urinary tract infection, site not specified (principal) | CPT/HCPCS: 87077; 87086; 87186 ==

== ENCOUNTER → 2023-04-08 | Outpatient (CLI) | payer MEDICARE, OTHER | END | disposition home or self-care (01) | LOC: LAB SHORT 15:12 → LAB 15:12 | DX: N39.0 Urinary tract infection, site not specified (principal) | CPT/HCPCS: 87077; 87086; 87186 ==

== ENCOUNTER 2023-08-26 17:53 | Emergency (ER) | payer MEDICARE, OTHER ==
[~2023-08-26] VITALS: Ht 165.1 cm; Wt 83.0 kg
[2023-08-26 17:58] VITALS: BP 148/63
== END 2023-08-26 19:50 | disposition home or self-care (01) ==
LOC: ER 17:53
DX: G89.18 Other acute postprocedural pain (principal); I10 Essential (primary) hypertension; E11.40 Type 2 diabetes mellitus with diabetic neuropathy, unspecified; J45.909 Unspecified asthma, uncomplicated; Z96.652 Presence of left artificial knee joint; Z88.1 Allergy status to other antibiotic agents; Z88.8 Allergy status to other drugs, medicaments and biological substances; Z79.01 Long term (current) use of anticoagulants; Z79.84 Long term (current) use of oral hypoglycemic drugs; Z79.51 Long term (current) use of inhaled steroids; Z79.899 Other long term (current) drug therapy
CPT/HCPCS: 93971; 99283-25

== ENCOUNTER → 2023-09-20 | Outpatient (CLI) | payer MEDICARE, OTHER ==
[2023-09-20 15:01] LABS: Adenovirus F 40/41 Not Detected (NOT DETECT); Astrovirus Not Detected (NOT DETECT); Campylobacter Sp Not Detected (NOT DETECT); Cryptosporidium Not Detected (NOT DETECT); Cyclospora Cayetanensis Not Detected (NOT DETECT); E. Coli O157 Not Detected (NOT DETECT); Entamoeba Histolytica Not Detected (NOT DETECT); Enteroaggregative E. coli-EAEC Not Detected (NOT DETECT); Enteropathogenic E. coli-EPEC Not Detected (NOT DETECT); Enterotoxigenic E. coli-ETEC Not Detected (NOT DETECT); Giardia Lamblia Not Detected (NOT DETECT); Norovirus GI/GII Not Detected (NOT DETECT); Plesiomonas Shigelloides Not Detected (NOT DETECT); Rotavirus A Not Detected (NOT DETECT); Salmonella Sp Not Detected (NOT DETECT); Sapovirus Not Detected (NOT DETECT); Shiga Toxin-prod E. coli-STEC Not Detected (NOT DETECT); Shigella/Enteroin E. coli-EIEC Not Detected (NOT DETECT); Vibrio Cholerae Not Detected (NOT DETECT); Vibrio Sp Not Detected (NOT DETECT); Yersinia Enterocolitica Not Detected (NOT DETECT)
== END | disposition home or self-care (01) ==
LOC: LAB 01:00 → LAB SHORT 01:00
PROVIDERS: Family Medicine
DX: R19.7 Diarrhea, unspecified (principal)
CPT/HCPCS: 87507

== ENCOUNTER → 2024-03-07 | Outpatient (CLI) | payer MEDICARE, OTHER ==
[~2024-03-07] MED LIST changes: +METO50ER PO; +NYSTATIN100000 U10 MT; +NYSTOP15 GM TOP; +PREDNISOLO15 MG/5 ML PO
[2024-03-09 12:26] LABS: Campylobacter Sp Not Detected (NOT DETECT); E. Coli O157 Not Detected (NOT DETECT); Enteroaggregative E. coli-EAEC Not Detected (NOT DETECT); Enteropathogenic E. coli-EPEC Not Detected (NOT DETECT); Enterotoxigenic E. coli-ETEC Not Detected (NOT DETECT); Plesiomonas Shigelloides Not Detected (NOT DETECT); Salmonella Sp Not Detected (NOT DETECT); Shiga Toxin-prod E. coli-STEC Not Detected (NOT DETECT); Vibrio Cholerae Not Detected (NOT DETECT); Vibrio Sp Not Detected (NOT DETECT); Yersinia Enterocolitica Not Detected (NOT DETECT)
[2024-03-09 12:27] LABS: Adenovirus F 40/41 Not Detected (NOT DETECT); Astrovirus Not Detected (NOT DETECT); Cryptosporidium Not Detected (NOT DETECT); Cyclospora Cayetanensis Not Detected (NOT DETECT); Entamoeba Histolytica Not Detected (NOT DETECT); Giardia Lamblia Not Detected (NOT DETECT); Norovirus GI/GII Not Detected (NOT DETECT); Rotavirus A Not Detected (NOT DETECT); Sapovirus Not Detected (NOT DETECT); Shigella/Enteroin E. coli-EIEC Not Detected (NOT DETECT)
== END | disposition home or self-care (01) ==
LOC: LAB SHORT 08:47 → LAB 08:47
PROVIDERS: Family Medicine
DX: R19.7 Diarrhea, unspecified (principal)
CPT/HCPCS: 87507

== ENCOUNTER 2024-09-05 20:20 | Emergency (ER) | payer MEDICARE, OTHER ==
[~2024-09-05] VITALS: Ht 165.1 cm; Wt 82.5 kg
[2024-09-05 21:29] LABS: BASOPHILS ABSOLUTE AUTO 0.05 K/mm3 (0.00-0.23); BASOPHILS PERCENT AUTO 1 % (0-2); EOSINOPHILS ABSOLUTE AUTO 0.27 K/mm3 (0.00-0.68); EOSINOPHILS PERCENT AUTO 4 % (0-6); Hematocrit 31.8 % (33.0-51.0); Hemoglobin 10.4 g/dL (11.5-16.0); IMMATURE GRAN ABSOLUTE AUTO 0.02 K/mm3 (0.00-0.10); IMMATURE GRAN PERCENT AUTO 0 % (0-1); LYMPHOCYTES ABSOLUTE AUTO 2.46 K/mm3 (0.84-5.20); LYMPHOCYTES PERCENT AUTO 32 % (21-46); MONOCYTES ABSOLUTE AUTO 0.85 K/mm3 (0.16-1.47); MONOCYTES PERCENT AUTO 11 % (4-13); Mean Corpuscular HGB 27.7 pg (26.0-34.0); Mean Corpuscular HGB Conc 32.7 g/dL (31.5-36.5); Mean Corpuscular Volume 85 fL (80-100); Mean Platelet Volume 9.3 fL (9.1-12.4); NEUTROPHILS PERCENT AUTO 53 % (41-73); Platelet Count 228 K/mm3 (150-400); RDW Coefficient Variation 13.5 % (11.7-14.2); RDW Standard Deviation 41.6 fL (35.1-46.3); Red Blood Cell Count 3.75 M/mm3 (3.80-5.20); White Blood Cell Count 7.75 K/mm3 (4.00-11.30)
[2024-09-05 21:48] LABS: Albumin/Globulin Ratio 0.8 (0.8-1.8); Bilirubin, Total 0.3 mg/dL (0.1-1.0); Bun/Creatinine Ratio 17.6 (12.0-20.0); Calcium, Blood 8.9 mg/dL (8.5-10.1); Creatinine, Blood 0.85 mg/dL (0.40-1.00); Globulin, Blood 3.9 g/dL (2.2-4.0); Potassium, Blood 3.4 mmol/L (3.5-5.5); Total Protein, Blood 6.9 g/dL (6.4-8.2)
[2024-09-05] MEDS ORDERED: Potassium Chloride 10 Meq Tablet SA PO ONE (23:35)
[2024-09-06 01:39] VITALS: BP 153/107
== END 2024-09-06 01:39 | disposition home or self-care (01) ==
LOC: ER 20:20
PROVIDERS: Student in an Organized Health Care Education/Training Program
DX: I48.91 Unspecified atrial fibrillation (principal); E11.40 Type 2 diabetes mellitus with diabetic neuropathy, unspecified; G47.33 Obstructive sleep apnea (adult) (pediatric); Z79.84 Long term (current) use of oral hypoglycemic drugs; Z79.51 Long term (current) use of inhaled steroids; Z79.899 Other long term (current) drug therapy; Z88.1 Allergy status to other antibiotic agents; Z88.8 Allergy status to other drugs, medicaments and biological substances
CPT/HCPCS: 71046; 80053; 84484; 85025; 93005; 93010; 99285-25; A9270

== ENCOUNTER 2025-03-12 06:31 | Day surgery (SDC) | payer MEDICARE, OTHER ==
[~2025-03-12] VITALS: Ht 165.1 cm; Wt 86.1 kg
[2025-03-12] MEDS ORDERED: ALBU90OI (07:01)
[2025-03-12] MEDS ORDERED: Trazodone HCl300 MG (07:01)
[2025-03-12] MEDS ORDERED: BREO ELLIPTA 11 EAC1 (07:01)
[2025-03-12] MEDS ORDERED: GABA300 (07:02)
[2025-03-12] MEDS ORDERED: CARBLEV250 (07:02)
[2025-03-12] MEDS ORDERED: propofoL 50 ML IV ONE (07:35)
[2025-03-12] MEDS ORDERED: Lidocaine HCl 4% 5 ML SDA ONE (07:44)
[2025-03-12] MEDS ORDERED: Lactated Ringer's 1,000 ML IV ONE (08:00)
[2025-03-12] MEDS ORDERED: Albuterol 2.5 MG/3 ML VIAL ONE ×2 (08:40→09:19)
--- NOTE | 2025-03-12 08:57 | NUR ---
03/12/25 0857 Spencer Helton ASSESS PT W/ AUDIBLE WHEEZES IN SDU WITH DR. RICHARDS DURING REPORT. FÉLIX BANKS STATED LUNGS WERE CLEAR IN PRE-OP. FÉLIX BANKS REPORTED PT SUCTIONED ORALLY IN OR POST OP. ALBUTEROL TX GIVEN IN SDU FOR WHEEZES PER ORDERS. O2 SATURATIONS 97-100% ON ROOM AIR PRE- AND POST- ABUTEROL TX.
[2025-03-12 10:08] VITALS: BP 138/94
== END 2025-03-12 10:12 | disposition home or self-care (01) ==
LOC: ORSCSDS 06:31
PROVIDERS: Internal Medicine Gastroenterology
PROC: 0DB68ZX Excision of Stomach, Via Natural or Artificial Opening Endoscopic, Diagnostic (ICD-10-PCS; principal; 2025-03-12 08:00)
DX: K22.70 Barrett's esophagus without dysplasia (principal); R13.10 Dysphagia, unspecified; I10 Essential (primary) hypertension; J45.909 Unspecified asthma, uncomplicated; J44.9 Chronic obstructive pulmonary disease, unspecified; K21.9 Gastro-esophageal reflux disease without esophagitis; G47.33 Obstructive sleep apnea (adult) (pediatric); Z95.0 Presence of cardiac pacemaker; Z79.01 Long term (current) use of anticoagulants; Z79.899 Other long term (current) drug therapy
CPT/HCPCS: 71045; 82947; 88305; J2003; J2704

== ENCOUNTER 2025-03-22 16:58 | Observation (INO) | payer MEDICARE, OTHER ==
[~2025-03-22] VITALS: Ht 167.6 cm; Wt 81.0 kg
[~2025-03-22 16:58] MED LIST changes: -ALPR.5; +BREO ELLIPTA 11 EAC1 INH; +CARBLEV250 PO; +GABA300; -METF500; +METF500 PO; +Trazodone HCl300 MG
[2025-03-22 17:34] LABS: BASOPHILS ABSOLUTE AUTO 0.04 K/mm3 (0.00-0.23); BASOPHILS PERCENT AUTO 1 % (0-2); EOSINOPHILS ABSOLUTE AUTO 0.25 K/mm3 (0.00-0.68); EOSINOPHILS PERCENT AUTO 3 % (0-6); Hematocrit 32.1 % (33.0-51.0); Hemoglobin 10.3 g/dL (11.5-16.0); IMMATURE GRAN ABSOLUTE AUTO 0.02 K/mm3 (0.00-0.10); IMMATURE GRAN PERCENT AUTO 0 % (0-1); LYMPHOCYTES ABSOLUTE AUTO 2.40 K/mm3 (0.84-5.20); LYMPHOCYTES PERCENT AUTO 29 % (21-46); MONOCYTES ABSOLUTE AUTO 0.71 K/mm3 (0.16-1.47); MONOCYTES PERCENT AUTO 9 % (4-13); Mean Corpuscular HGB Conc 32.1 g/dL (31.5-36.5); Mean Corpuscular Volume 84 fL (80-100); NEUTROPHILS ABSOLUTE AUTO 4.82 K/mm3 (1.96-9.15); NEUTROPHILS PERCENT AUTO 59 % (41-73); NRBC ABSOLUTE 0.00 K/mm3 (0.00-0.02); NRBC Auto 0.0 /100 WBC (0.0-0.2); Platelet Count 239 K/mm3 (150-400); RDW Coefficient Variation 14.3 % (11.7-14.2); RDW Standard Deviation 43.9 fL (35.1-46.3)
[2025-03-22 17:52] LABS: Alanine Aminotransfer (ALT/SGP 26 U/L (12-78); Albumin, Blood 3.3 g/dL (3.4-5.0); Albumin/Globulin Ratio 0.8 (0.8-1.8); Anion Gap 7 mmol/L (3-11); Aspartate Aminotrans (AST/SGOT 26 U/L (12-37); Bilirubin, Total 0.2 mg/dL (0.1-1.0); Blood Urea Nitrogen 26 mg/dL (8-24); CO2, Blood 27 mmol/L (21-32); Calcium, Blood 9.1 mg/dL (8.5-10.1); Chloride, Blood 105 mmol/L (98-108); Creatinine, Blood 0.77 mg/dL (0.40-1.00); Globulin, Blood 4.0 g/dL (2.2-4.0); Glucose, Blood 138 mg/dL (70-99); Potassium, Blood 4.0 mmol/L (3.5-5.5); Sodium, Blood 135 mmol/L (136-145); Total Protein, Blood 7.3 g/dL (6.4-8.2)
[2025-03-22] MEDS ORDERED: Ketorolac Tromethamine 15mg Vial IV ONE (18:10)
[2025-03-22] MEDS ORDERED: Prochlorperazine Edisylate 10 mg Vial IV ONE (18:10)
[2025-03-22] MEDS ORDERED: Ondansetron HCl 2 MG / ML 2ML Vial IV PRN (20:40)
[2025-03-22] MEDS ORDERED: Albuterol 2.5 MG/3 ML VIAL INH PRN (20:40)
[2025-03-22] MEDS ORDERED: NS 1,000 ML IV SCH (20:40)
[2025-03-22] MEDS ORDERED: Levodopa/Carbidopa 250 / 25 MG 1 Tab PO SCH (21:00)
[2025-03-22 23:11] VITALS: BP 146/79
--- NOTE | 2025-03-23 01:03 | NUR ---
ADMIT NOTE 79 YR OLD FEMALE ADMITTED TO FLOOR FROM THE ED WITH DX OF TIA. ALERT TO QUESTIONS ASKED. NO NOTED DEFICEIT WITH SMILE OR ASSEMBLY LINE WORKER. VOICED FEELING IN ALL 4 EXT. (SEE NEURO CHECK FOR DETAILS). MED TELE SR. HX PACEMAKER. ON BEDREST FOR SAFETY SHE HAS BILAT WEAKNESS IN LEGS. PUREWICK IN USE. NOTE SCAR ON LEFT KNEE. ORIENTED TO USE OF CALL LIGHT. HOB ELEVATED FOR COMFORT. RAILS UP X 2, BED IN LOW POSITION FOR SAFETY. CALL LIGHT IN REACH. IVF OF NS INFUSING. WILL CONT TO MONITOR
[2025-03-23 03:04] VITALS: BP 146/87
[2025-03-23 05:49] LABS: Hematocrit 29.4 % (33.0-51.0); Hemoglobin 9.5 g/dL (11.5-16.0); Mean Corpuscular HGB Conc 32.3 g/dL (31.5-36.5); Mean Corpuscular Volume 84 fL (80-100); NRBC ABSOLUTE 0.00 K/mm3 (0.00-0.02); NRBC Auto 0.0 /100 WBC (0.0-0.2); Platelet Count 206 K/mm3 (150-400); RDW Coefficient Variation 14.4 % (11.7-14.2); RDW Standard Deviation 44.0 fL (35.1-46.3)
[2025-03-23 06:20] LABS: Anion Gap 7.0 mmol/L (3-11); Blood Urea Nitrogen 26.0 mg/dL (8-24); CO2, Blood 27.0 mmol/L (21-32); Calcium, Blood 8.4 mg/dL (8.5-10.1); Chloride, Blood 108.0 mmol/L (98-108); Creatinine, Blood 0.8 mg/dL (0.40-1.00); Glucose, Blood 99.0 mg/dL (70-99); Potassium, Blood 3.8 mmol/L (3.5-5.5); Sodium, Blood 138.0 mmol/L (136-145)
--- NOTE | 2025-03-23 07:25 | NUR ---
OFFSHORE WIND TURBINE TECHNICIAN SUMMARY PT A&OX4, VSS. PT HAS BEEN RECEIVING Q4 NEURO CHECKS. LATEST NEURO CHECK SCORE: 1. PT CONTINUES TO BE ON TELE. BILLING CHECKER REPORTS SR. PT HAS BEEN COMPLIANT WITH CARE ANDMEDICATIONS. PUREWICK CHANGED. PT HAS BEEN SLEEPING MOST OF SHIFT SINCE ADMISSION. CHEST RISE AND RESPIRATIONS NOTED. BED RAILS UP X 2, BED IN LOWEST POSITION, BED WHEELS LOCKED, PERSONAL BELONGINGS AND CALL LIGHT WITHIN REACH FOR SAFETY.
[2025-03-23] MEDS ORDERED: Insulin Human Lispro 100 Units/ML 3ML Syringe SC SCH (07:30)
[2025-03-23 07:43] VITALS: BP 140/75
[2025-03-23] MEDS ORDERED: GABA100 PO (15:27)
--- NOTE | 2025-03-23 15:58 | NUR ---
PT DISCHARGED HOME. IV'S REMOVED AND SITES APPEAR WNL. DISCHARGE INSTRUCTIONS REVIEWED WITH PT. NO NEW RX NEEDING TO BE FILLED. TELE REMOVED/CLEANED AND SENT BACK TO PCU. PT ABLE TO STAND AND AMBULATE TO AND TO PRIVATE VEHICLE AFTER BEING WHEELED DOWN BY RN.
== END 2025-03-23 15:50 | disposition home or self-care (01) ==
LOC: ER 16:58 → MEDS 16:59
PROVIDERS: Emergency Medicine; Nurse Practitioner Acute Care; ADMIT Student in an Organized Health Care Education/Training Program
DX: R47.01 Aphasia (principal); R47.81 Slurred speech; R40.4 Transient alteration of awareness; E11.9 Type 2 diabetes mellitus without complications; I10 Essential (primary) hypertension; E78.5 Hyperlipidemia, unspecified; G47.33 Obstructive sleep apnea (adult) (pediatric); I48.0 Paroxysmal atrial fibrillation; J45.909 Unspecified asthma, uncomplicated; I49.5 Sick sinus syndrome; G20.A1 Parkinson's disease without dyskinesia, without mention of fluctuations; E66.01 Morbid (severe) obesity due to excess calories; Z68.30 Body mass index [BMI] 30.0-30.9, adult; Z66 Do not resuscitate; Z79.01 Long term (current) use of anticoagulants; Z88.1 Allergy status to other antibiotic agents
CPT/HCPCS: 36415; 70450; 80048; 80053; 82947; 85025; 85027; 92523; 92610; 93005; 93010; 93306; 93880; 96361; 96374; 96375; 97116; 97162; 97165; 97530; 97535; 99285-25; A6590; A9270; G0378; J0780; J1885; J7030

== ENCOUNTER → 2025-04-17 | Outpatient (CLI) | payer MEDICARE, OTHER ==
[~2025-04-17] MED LIST changes: +GABA100 PO
[2025-04-17 19:35] LABS: Bacterial Vaginosis PCR Negative (NEGATIVE); Candida Group, PCR NOT DETECTED (NOT DETECT); Candida glabrata-krusei, PCR NOT DETECTED (NOT DETECT)
== END ==
LOC: LAB SHORT 10:39 → LAB 10:39
PROVIDERS: Physician Assistant
DX: R82.81 Pyuria (principal); R10.2 Pelvic and perineal pain
CPT/HCPCS: 81515; 87086

== ENCOUNTER → 2025-07-23 | Outpatient (CLI) | payer MEDICARE, OTHER | LOC: LAB 12:31 → LAB SHORT 12:31 | DX: N39.0 Urinary tract infection, site not specified (principal) | CPT/HCPCS: 87077; 87086; 87186 ==